=== PATIENT | male | born 1980 | race Caucasian/White ===

== ENCOUNTER 2018-11-11 10:38 | Inpatient (IN) | payer OTHER ==
[2018-11-11] MEDS ORDERED: Morphine 4 MG/ML VIAL ONE (11:06)
[2018-11-11] MEDS ORDERED: Lidocaine 1% w/Epinephrine 1:100K 20 ML VIAL ONE ×2 (11:06→12:10)
[2018-11-11] MEDS ORDERED: Piperacillin/Tazobactam 4.5 GM VIAL ONE (11:08)
[2018-11-11 11:20] LABS: Band 6 % (5-11); Hemoglobin 15.9 g/dL (14.0-18.0); Lymphocytes 10 % (21-51); MDiff Complete? YES; Mean Corpuscular HGB CONC 33.7 g/dL (32.0-36.0); Mean Corpuscular Hemoglobin 32.8 pg (27.0-31.0); Mean Corpuscular Volume 97.5 fL (78.0-98.0); Monocytes 4 % (0-10); Neutrophil 80 % (42-75); Platelet Count 226 thou/uL (130-400); RBC Distribution Width 12.9 % (11.5-14.5); Red Blood Cell (RBC) Count 4.83 mill/uL (4.70-6.10); White Blood Cell (WBC) Count 21.4 thou/uL (4.8-10.8)
[2018-11-11 11:24] LABS: ALT (SGPT) 24 U/L (8-55); AST (SGOT) 16 U/L (5-34); Albumin 4.4 g/dL (3.5-5.0); Alkaline Phosphatase 84 U/L (40-150); Anion Gap 15 mmol/L (10-20); BUN (Urea Nitrogen) 7 mg/dL (8.9-20.6); Calc. Creatinine Clearance 0 mL/min (70-130); Calcium 9.8 mg/dL (7.8-10.44); Carbon Dioxide 23 mmol/L (22-29); Chloride 102 mmol/L (98-107); Estimated GFR-MDRD 73; Globulin 3.2 g/dL (2.4-3.5); Glucose 158 mg/dL (70-105); Potassium 3.5 mmol/L (3.5-5.1); Protein, Total 7.6 g/dL (6.0-8.3); Sodium 136 mmol/L (136-145)
--- NOTE | 2018-11-11 11:36 | RAD ---
LEFT ELBOW FOUR VIEWS: HISTORY: Left elbow pain. Cellulitis. FINDINGS: No fracture, dislocation, or bony destruction is seen. No periosteal reaction is identified. No rad iopaque foreign body is seen. IMPRESSION: No evidence of osteomyelitis. POS: [facility]
--- NOTE | 2018-11-11 12:16 | CT ---
CT LEFT UPPER EXTREMITY: HISTORY: Left arm swelling, redness, and pain. FINDINGS: There is edema, fluid, and inflammatory change in the subcutaneous fat of the left upper extremity. No loculated fluid collection with rim enhancement is seen to suggest abscess formation. The bony st ructures are intact. IMPRESSION: Left upper extremity cellulitis. No evidence of osteomyelitis. POS: [facility]
[2018-11-11 14:34] VITALS: BMI 33.7
[2018-11-11] MEDS ORDERED: Morphine 4 MG/ML VIAL SLOW IVP PRN (14:39)
[2018-11-11] MEDS ORDERED: Acetaminophen 325 MG TAB PO PRN ×2 (14:40→15:01)
[2018-11-11] MEDS ORDERED: hydrALAZINE 20 MG/ML VIAL SLOW IVP PRN (15:01)
[2018-11-11] MEDS ORDERED: Pharmacy to Dose 1 EACH VANCOMYCIN IVPB PRN (15:09)
[2018-11-11] MEDS: Nicotine 14 MG PATCH TD SCH (15:21)
[2018-11-11] MEDS: Clindamycin/D5W 600 MG in Premix Bag 1 BAG IVPB SCH ×2 (15:58→23:02)
[2018-11-11] MEDS ORDERED: ISOVUE-370 76%-LOCM 1 ML ONE (16:44)
--- NOTE | 2018-11-11 17:01 | HP ---
PRIMARY CARE PHYSICIAN: The patient currently does not have a primary care physician. CHIEF COMPLAINT: The patient is complaining of pain and swelling of the left elbow. HISTORY OF PRESENT ILLNESS: Mr. Michael is a pleasant 38-year-old gentleman, who has no known past medical history. He says that, on , he believes he got bitten by a mosquito. [place] this happened. He says it started off like a little bump and he had some pus and that he "pushed out." He says normally, when this happens, it gets better shortly afterwards. However, this did not happen on this time. He says that the swelling got progressively worse and he got to the point where the elbow and tendons and bones seem to be hurting. He rated the pain at about of 10/10, and it was definitely worse with movement, it was a burning in sensation, and there was no radiation. He went to the doctor on [facility], where they gave him a shot and it appears it was Rocephin and sent him home on Bactrim as well as mupirocin ointment. However, his symptoms did not get better. He started having subjective chills on yesterday, but no fever. He also noted a decreased appetite, and says that he was extremely tired and wanted to just sleep in his recliner all day. As a result of these symptoms in the fact that it had not gotten better, he came to the ER for evaluation here. In the ER, he was evaluated and had lab work done, noting that he had a white blood cell count of 21.4 and he is being admitted for failed outpatient treatment of cellulitis. REVIEW OF SYSTEMS: CONSTITUTIONAL: He has had no fever, but subjective chills. No night sweats. No weight loss. HEENT: No headaches. No dizziness. No visual changes. No sore throat. No rhinorrhea, neck pain. No adenopathy. PULMONARY: No hemoptysis. No cough. No wheezing. CARDIOVASCULAR: He denies any chest pain. No shortness of breath. No PND. No palpitations. GASTROINTESTINAL: No nausea. No vomiting. He did have some diarrhea, but there was no blood in the stools or no hematemesis. No dark stools. GENITOURINARY: No urinary frequency or hematuria. No hesitancy. MUSCULOSKELETAL: Other than his elbow as previously mentioned, there have been no joint pains or muscle aching. NEUROLOGIC: No focal weakness or numbness. No seizures. PSYCHIATRIC: No symptoms of anxiety or depression. SKIN AND INTEGUMENT: He has had redness and swelling in the left elbow and forearm, but no other complaints. PAST MEDICAL HISTORY: He denies any chronic medical illnesses. PAST SURGICAL HISTORY: He has had surgery for broken hand, in which he had some wires and reconstruction of the bone. ALLERGIES: NO KNOWN DRUG ALLERGIES. SOCIAL HISTORY: He smokes occasional marijuana and does smoke tobacco cigarettes a pack a day for at least 20 years. Also, drinks 2 to 3 times a week and on the weekends. He says he does not keep count, but he has beer as well as vodka. He is . 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 FAMILY HISTORY: No history of any heritable diseases. CURRENT MEDICATIONS: None, other than the antibiotic Bactrim and mupirocin. PHYSICAL EXAMINATION: VITAL SIGNS: Blood pressure was 152/98, heart rate 87, respiratory rate of 15, and he is afebrile. GENERAL: He is alert and oriented and appears to be in no acute distress and he is well developed and well nourished. HEENT: Pupils are equal, round, and reactive to light. Extraocular muscles are intact. Sclerae anicteric. Throat, no erythema, no exudates. NECK: There is no adenopathy. No bruits. LUNGS: Clear to auscultation with an occasional expiratory wheeze. There are no rhonchi, no rales. CARDIOVASCULAR: He has a normal S1 and S2. There is no S3 or S4. No murmurs, clicks, or rubs. ABDOMEN: Obese. It is soft, nontender, and nondistended. Positive for bowel sounds. No rebound. No guarding. No organomegaly. EXTREMITIES: On his legs, there is no clubbing or cyanosis, no edema. No joint pains or effusions. On the left upper extremity, he has fairly significant swelling in the forearm and elbow extending up into the upper arm and there is some exquisite tenderness as well as erythema over the olecranon process, swelling into the hands. However, he has good radial and ulnar pulses and good capillary refill. There is no obvious fluctuance, and unable to assess for any joint effusions. NEUROLOGIC: His cranial nerves 2 through 12 are grossly intact. SKIN AND INTEGUMENT: There are no skin changes other than previously mentioned. LABORATORY AND DIAGNOSTIC DATA: White blood cell count 21.4, hemoglobin 15.9, hematocrit is 47.1, and platelet count is 226. Sodium 136, potassium 3.5, chloride is 102, CO2 is 23, BUN of 7, creatinine 1.13, glucose is 158. CT scan of the upper extremity, there is no fluid collection to suggest abscess formation and there is no evidence of any osteomyelitis. He also had an x-ray of the elbow, showing no evidence of any osteomyelitis as well. ASSESSMENT: 1. This is a pleasant 38-year-old gentleman, who failed outpatient treatment for upper extremity cellulitis. Given that he failed treatment with Bactrim and Rocephin, we will go ahead and start him on vancomycin in the event that he has a methicillin-resistant Staphylococcus involvement. We will also place him on clindamycin as well and follow him clinically. The area has already been marked. Should he have improvement in his symptoms, then likely he can be discharged home in a couple of days. Otherwise, if the area gets worse, then either repeat CT scan or MRI may need to be done to rule out the development of a deep infection. 2. Elevated blood glucoses. Blood sugar is elevated. However, this is not a fast example. We will go ahead and get a fasting blood sugar in the a.m. as well as a hemoglobin A1c to screen him for diabetes. 3. Tobacco abuse. We will offer nicotine patch and brief counseling with regard to smoking cessation. Job ID: [id number]
[2018-11-11] MEDS ORDERED: Piperacillin/Tazobactam 3.375 GM in Sodium Chloride 0.9% 100 ML IVPB SCH (18:00)
[2018-11-11] MEDS: HYDROcodone/Acetaminophen 5/325 mg Tablet PO PRN (19:09)
[2018-11-12] MEDS: Vancomycin HCl 1 GM in Premix Bag 1 BAG IVPB SCH ×2 (01:51→12:43)
[2018-11-12] MEDS: HYDROcodone/Acetaminophen 5/325 mg Tablet PO PRN ×3 (01:54→22:13)
[2018-11-12] MEDS: Clindamycin/D5W 600 MG in Premix Bag 1 BAG IVPB SCH ×4 (03:32→22:13)
[2018-11-12 06:07] LABS: #Basophils 0.1 thou/uL (0.0-0.2); #Eosinphils 0.3 thou/uL (0.0-0.7); #Lymphocytes 2.4 thou/uL (1.20-3.40); #Monocytes 1.6 thou/uL (0.11-0.59); #Neutrophils 11.9 thou/uL (1.40-6.50); %Basophils 0.6 % (0.0-1.0); %Eosinophils 1.7 % (0.0-10.0); %Lymphocytes 14.7 % (21.0-51.0); %Monocytes 9.8 % (0.0-10.0); %Neutrophils 73.2 % (42.0-75.0); Hemoglobin 13.6 g/dL (14.0-18.0); Mean Corpuscular HGB CONC 33.2 g/dL (32.0-36.0); Mean Corpuscular Hemoglobin 32.8 pg (27.0-31.0); Mean Corpuscular Volume 98.6 fL (78.0-98.0); Mean Platelet Volume 8.9 fL (7.4-10.4); Platelet Count 206 thou/uL (130-400); RBC Distribution Width 12.8 % (11.5-14.5); Red Blood Cell (RBC) Count 4.15 mill/uL (4.70-6.10); White Blood Cell (WBC) Count 16.2 thou/uL (4.8-10.8)
[2018-11-12 06:15] LABS: Hemoglobin A1c 5.4 % (4.0-6.0)
[2018-11-12 06:27] LABS: Anion Gap 12 mmol/L (10-20); BUN (Urea Nitrogen) 5 mg/dL (8.9-20.6); Calc. Creatinine Clearance 184 mL/min (70-130); Calcium 9.3 mg/dL (7.8-10.44); Carbon Dioxide 23 mmol/L (22-29); Chloride 107 mmol/L (98-107); Estimated GFR-MDRD Greater than 90; Glucose 105 mg/dL (70-105); Potassium 3.9 mmol/L (3.5-5.1); Sodium 138 mmol/L (136-145)
[2018-11-12] MEDS: Enoxaparin Sodium 40 MG/0.4 ML SYRINGE SC SCH (09:21)
[2018-11-12] MEDS: Saccharomyces boulardii 250 MG CAP PO SCH (09:21)
--- NOTE | 2018-11-12 12:00 | PDOC.HOSPP ---
- Subjective Encounter Date: 11/12/18 Encounter Time: 11:58 Subjective: Mr. Michael was seen today in follow-up of cellulitis of the left upper extremity. He does not have any new complaints. He notes some more mobility of his arm. - Objective Vital Signs & Weight: Vital Signs (12 hours) Temp Pulse Resp BP BP Pulse Ox 11/12/18 08:00 98.1 F 90 18 132/77 94 L 11/12/18 04:00 97.5 F L 73 18 122/83 93 L 11/12/18 00:00 98.4 F 90 18 114/80 95 Weight Weight 228 lb 12.8 oz I&O: 11/11/18 11/12/18 11/13/18 06:59 06:59 06:59 Intake Total 810 Balance 810 Result Diagrams: 11/12/18 05:37 11/12/18 05:37 ROS - Medication Medications: Active Medications Generic Name Dose Route Start Last Admin Trade Name Freq PRN Reason Stop Dose Admin Hydrocodone Bitart/Acetaminophen 1 tab 11/11/18 15:01 11/12/18 01:54 [place] 5/325 PO 1 tab Q4H PRN Administration Moderate Pain (4-6) Enoxaparin Sodium 40 mg 11/12/18 09:00 11/12/18 09:21 Lovenox SC 40 mg 0900 CHARLENE Administration Vancomycin HCl 1 gm/ Device 200 mls @ 200 mls/hr 11/12/18 01:00 11/12/18 01: 51 IVPB 200 mls 0100,1300 CHARLENE Administration Clindamycin Phosphate/Dextrose 50 mls @ 100 mls/hr 11/11/18 16:00 11/12/18 09 :21 600 mg/ Device IVPB 50 mls 0400,1000,1600,2200 CHARLENE Administration Nicotine 14 mg 11/11/18 15:00 11/11/18 15:21 Nicoderm Patch TD Not Given 1500 CHARLENE Saccharomyces Boulardii 250 mg 11/12/18 09:00 11/12/18 09:21 Florastor PO 250 mg DAILY CHARLENE Administration - Exam Eye: PERRL, anicteric sclera Heart: RRR, no murmur, no gallops, no rubs Respiratory: CTAB (with the exception of an occasional wheeze), no rales, no ronchi, normal chest expansion Gastrointestinal: soft, non-tender, non-distended, normal bowel sounds, no palpable masses, no hepatomegaly, no splenomegaly Extremities: 1+ LE edema (+ swelling of the left upper extremity, redness has regressed some, improved extrension and flexion) Neurological: CN's grossly intact, no focal deficits, no new deficit Hosp A/P (1) Cellulitis of left upper arm Code(s): L03.114 - CELLULITIS OF LEFT UPPER LIMB Status: Acute (2) Tobacco abuse Code(s): Z72.0 - TOBACCO USE Status: Chronic (3) Obesity (BMI 30-39.9) Code(s): E66.9 - OBESITY, UNSPECIFIED Status: Chronic - Plan * Cellulitis of the left upper extremity- improved, but not yet ready for discharge Await culture results * Tobacco Abuse- continue brief counseling * Obesity- discussed briefly diet and exercise * Hyperglycemia- resolved
[2018-11-12] MEDS: Nicotine 14 MG PATCH TD SCH (15:00)
[2018-11-13] MEDS: Vancomycin HCl 1 GM in Premix Bag 1 BAG IVPB SCH (00:35)
[2018-11-13] MEDS: Clindamycin/D5W 600 MG in Premix Bag 1 BAG IVPB SCH ×3 (03:33→16:18)
[2018-11-13 06:12] LABS: #Basophils 0.1 thou/uL (0.0-0.2); #Eosinphils 0.3 thou/uL (0.0-0.7); #Lymphocytes 2.1 thou/uL (1.20-3.40); #Monocytes 1.2 thou/uL (0.11-0.59); #Neutrophils 8.7 thou/uL (1.40-6.50); %Basophils 0.5 % (0.0-1.0); %Eosinophils 2.7 % (0.0-10.0); %Lymphocytes 16.8 % (21.0-51.0); %Monocytes 9.8 % (0.0-10.0); %Neutrophils 70.1 % (42.0-75.0); Mean Corpuscular HGB CONC 33.2 g/dL (32.0-36.0); Mean Corpuscular Hemoglobin 32.5 pg (27.0-31.0); Mean Corpuscular Volume 98.1 fL (78.0-98.0); Mean Platelet Volume 8.6 fL (7.4-10.4); Platelet Count 239 thou/uL (130-400); RBC Distribution Width 12.7 % (11.5-14.5); White Blood Cell (WBC) Count 12.4 thou/uL (4.8-10.8)
[2018-11-13] MEDS: Enoxaparin Sodium 40 MG/0.4 ML SYRINGE SC SCH (09:14)
[2018-11-13] MEDS: Saccharomyces boulardii 250 MG CAP PO SCH (09:14)
[2018-11-13] MEDS: HYDROcodone/Acetaminophen 5/325 mg Tablet PO PRN (11:15)
[2018-11-13 12:33] LABS: Vancomycin, Trough 4.9 ug/mL
--- NOTE | 2018-11-13 13:18 | PDOC.HOSPP ---
- Subjective Encounter Date: 11/13/18 Encounter Time: 13:14 Subjective: Mr. Michael does not have any new complaints. He continues to have some pain in his arm especially when it is dressed. - Objective Vital Signs & Weight: Vital Signs (12 hours) Temp Pulse Resp BP BP Pulse Ox 11/13/18 11:18 97.5 F L 68 16 138/91 H 97 11/13/18 08:28 98.4 F 71 20 107/78 94 L Weight Weight 228 lb 12.8 oz I&O: 11/12/18 11/13/18 11/14/18 06:59 06:59 06:59 Intake Total 810 1850 Balance 810 1850 Result Diagrams: 11/13/18 06:05 11/12/18 05:37 ROS - Medication Medications: Active Medications Generic Name Dose Route Start Last Admin Trade Name Freq PRN Reason Stop Dose Admin Hydrocodone Bitart/Acetaminophen 1 tab 11/11/18 15:01 11/13/18 11:15 [place] 5/325 PO 1 tab Q4H PRN Administration Moderate Pain (4-6) Enoxaparin Sodium 40 mg 11/12/18 09:00 11/13/18 09:14 Lovenox SC 40 mg 0900 CHARLENE Administration Clindamycin Phosphate/Dextrose 50 mls @ 100 mls/hr 11/11/18 16:00 11/13/18 09 :14 600 mg/ Device IVPB 50 mls 0400,1000,1600,2200 CHARLENE Administration Nicotine 14 mg 11/11/18 15:00 11/12/18 15:00 Nicoderm Patch TD Not Given 1500 CHARLENE Saccharomyces Boulardii 250 mg 11/12/18 09:00 11/13/18 09:14 Florastor PO 250 mg DAILY CHARLENE Administration Sodium Chloride 10 ml 11/12/18 21:00 11/13/18 09:14 Flush - Normal Saline IVF 10 ml Q12HR CHARLENE Administration - Exam Eye: PERRL, anicteric sclera Heart: RRR, no murmur, no gallops, no rubs, normal peripheral pulses Respiratory: CTAB, no wheezes, no rales, no ronchi, normal chest expansion Extremities: 1+ LE edema (Swelling in the left upper extremity) Neurological: CN's grossly intact, normal sensation to touch, no weakness, no focal deficits, no new deficit Hosp A/P (1) Cellulitis of left upper arm Code(s): L03.114 - CELLULITIS OF LEFT UPPER LIMB Status: Acute (2) Tobacco abuse Code(s): Z72.0 - TOBACCO USE Status: Chronic (3) Obesity (BMI 30-39.9) Code(s): E66.9 - OBESITY, UNSPECIFIED Status: Chronic - Plan * Cellulitis of the left upper extremity- improved * Culture results are back * Stable for discharge home
[2018-11-13] MEDS: Nicotine 14 MG PATCH TD SCH (16:18)
[2018-11-13 18:06] VITALS: BP 128/72; TEMP 98.4
--- NOTE | 2018-11-14 01:56 | DIS ---
DATE OF ADMISSION: 11/11/2018 DATE OF DISCHARGE: 11/13/2018 PRIMARY CARE PHYSICIAN: The patient does not have a primary care physician. DISCHARGE DISPOSITION: Home. DISCHARGE DIAGNOSES: 1. Abscess of the left upper extremity. 2. Obesity. 3. Tobacco abuse. DISCHARGE MEDICATIONS: 1. Doxycycline 100 mg twice daily. 2. Tramadol 50 mg q.6 as needed for pain. PROCEDURES DONE DURING THE ADMISSION: The patient had a CT scan of the upper extremity showing no evidence of osteomyelitis and there is no fluid collection or enhancement to suggest abscess. CODE STATUS: Full code. ALLERGIES: NO KNOWN DRUG ALLERGIES. HOSPITAL COURSE: Mr. Michael is a pleasant 38-year-old gentleman, who presented to the emergency room after he began having pain and swelling of the left upper extremity. He has had problems like this before. He attributed to a mosquito bite. He was evaluated in the ER and found to have a left upper extremity cellulitis. CT scan was negative for abscess. He was treated with IV vancomycin and clindamycin and improved over the course of the next couple of days. Cultures grew out Staph aureus, which was carranza sensitive. He is being discharged home on doxycycline and arrangements will be made for him to have follow up in the outpatient [facility] Care [facility]. Job ID: [id number]
--- NOTE | 2018-11-15 08:04 | PQF ---
POST,MARIUSZ VILLALBA MD [id number] CLINICAL DOCUMENTATION CLARIFICATION FORM: POST DISCHARGE Addendum to original discharge summary date: ____ Late entry note date: __ DATE: 11-15-2018 ATTN:Mariusz Womack Please exercise your independent, professional judgment in responding to the clarification form. Clinical indicators are provided on the bottom of this form for your review Can you please specify whether Sepsis is ruled in or ruled out during this encounter? Please check appropriate box(s) to clarify if the following diagnosis has been ruled in or ruled out: Sepsis [ X ] Ruled in diagnosis [ X ] Continue to treat [ ] Resolved [ ] Ruled out diagnosis [ ] Cannot rule out diagnosis [ ] Other diagnosis please specify: [ ] Unable to determine For continuity of documentation, please document condition throughout progress notes and discharge summary. Thank You. CLINICAL INDICATORS: -"Primary diagnosis:Sepsis" - ED Notes 11/11 -"38 years old male with sepsis criteria"- ED Notes 11/11 -"Broad spectrum abx administered"- ED Notes 11/11 -"Cultures grew out Stap aureus" - DS 11/13 -WBC 11/11: 21.4, 11/12 16.2, 11/13:12.4 - Labs 11/11-11/13 - Pulse: 98 - Vital Signs 11/12 RISK FACTOR: -upper extremity cellulitis - H&P 11/11 -obesity- H&P 11/11 -hyperglycemia- H&P 11/11 -tobacco abuse - PN Hospitalist 11/12 TREATMENTS: -IVF - ED Notes 11/11 -Vancomycin 1gm IV - H&P 11/11 -wound culture - H&P 11/11 -CT scan of LUE - DS 11/13 (This form is maintained as a part of the permanent medical record) 2014 [employer], [place]. All Rights Reserved [email or web address] [not provided] MTDD
== END 2018-11-13 17:48 | disposition home or self-care (01) | DRG 872 ==
LOC: ERS 10:38 → T4-B 12:42
PROVIDERS: ADMIT Internal Medicine; ATTEND Internal Medicine
DX: A41.9 Sepsis, unspecified organism (principal); L03.114 Cellulitis of left upper limb; F17.210 Nicotine dependence, cigarettes, uncomplicated; E66.9 Obesity, unspecified; R73.9 Hyperglycemia, unspecified; B95.61 Methicillin susceptible Staphylococcus aureus infection as the cause of diseases classified elsewhere; Z68.33 Body mass index [BMI] 33.0-33.9, adult; S30.860A Insect bite (nonvenomous) of lower back and pelvis, initial encounter
CPT/HCPCS: 10060; 36415; 80048; 80053; 80202; 83036; 83605; 85025; 87040; 87070; 87077; 87186; 87205; 93005; 96365; 96366; 96367; 96375; J1650; J2001; J2270; J2543; J3370; J3490; J7050; Q9966

== ENCOUNTER 2018-11-23 14:57 | Outpatient (CLI) | payer OTHER ==
[~2018-11-23 14:57] MED LIST: Sodium Chloride 0.9% 15 ML NEB ONE
--- NOTE | 2018-11-24 00:04 | HP ---
HISTORY OF PRESENT ILLNESS: Mr. Mark Michael is a very pleasant 38-year-old gentleman who presents to the wound center for evaluation of a wound of the left upper extremity subsequent to incision and drainage of an abscess. The patient has been performing dressing changes of 0.25 inch iodoform packing followed by Kerlix. The patient was discharged from [facility] on 11/13/2018 after admission for the abscess of the left upper extremity. The patient was discharged to home on doxycycline 100 mg p.o. b.i.d. PAST MEDICAL HISTORY: Negative for any chronic medical conditions including diabetes mellitus, hypertension, or coronary artery disease. PAST SURGICAL HISTORY: Hand surgery, remote. MEDICATIONS: None. ALLERGIES: NO KNOWN DIAGNOSED ALLERGIES. SOCIAL HISTORY: Significant for tobacco use of 1 pack of cigarettes per day for approximately 15 years. The patient denies any history of EtOH use. FAMILY HISTORY: Negative for diabetes mellitus or coronary artery disease. PHYSICAL EXAMINATION: VITAL SIGNS: Temperature 97.7, pulse 68, respirations 19, and blood pressure 118/71. GENERAL: A 38-year-old gentleman sitting on table in examination room, in no acute distress. HEENT: Normocephalic, Atraumatic. NECK: No nuchal rigidity. CHEST: Clear to auscultation. CV: Regular rate and rhythm. ABDOMEN: Soft. EXTREMITIES: An ulceration of the left upper extremity in the region of the elbow is present. The dimensions of the wound are approximately 0.5 x 0.5 cm. Granulation tissue is present within the wound margins. Nonviable tissue present within the wound margins was debrided with an excisional full-thickness debridement. No purulent drainage is associated with the wound. No erythema of the skin surrounding the wound is present. No maceration of the skin of the periwound is noted. Edema of the left upper extremity is present on exam today. NEURO: Grossly nonfocal. ASSESSMENT AND PLAN: Wound of left upper extremity as described above. Dressing changes of Xeroform gauze will be initiated today. These dressing changes are to be performed on a daily basis after cleansing and irrigation. The patient will be performing his own dressing changes. The patient has been asked to utilize bordered gauze as a secondary dressing. The patient has been reassured that the wound is healing without complications or any signs of infection and has almost healed completely. Mr. Post will be discharged from clinic today with followup on a p.r.n. basis. Job ID: [id number]
== END 2018-11-23 14:58 | disposition home or self-care (01) ==
LOC: WCC 14:57
PROVIDERS: ATTEND Family Medicine
DX: T81.89XD Other complications of procedures, not elsewhere classified, subsequent encounter (principal)
CPT/HCPCS: 11042; 99203; A4218; G0463